=== PATIENT | female | born 1965 | race Caucasian/White ===

== ENCOUNTER 2023-12-07 21:51 | Inpatient (IN) | payer OTHER ==
[~2023-12-07 21:51] MED LIST: Iopamidol 370 76% 100 ML VIAL ONE
[2023-12-07] MEDS ORDERED: CEFAZOLIN 2 GM VIAL ONE (22:04)
[2023-12-07] MEDS ORDERED: Morphine 4 MG/ML VIAL ONE (22:04)
[2023-12-07] MEDS ORDERED: Ipratropium/Albuterol 3 ML NEB NEB PRN (22:22)
[2023-12-07] MEDS ORDERED: Morphine 2 MG/ML VIAL SLOW IVP PRN (22:22)
[2023-12-07] MEDS ORDERED: Ondansetron PF 4 MG/2 ML Vial IVP PRN (22:22)
[2023-12-07 22:31] LABS: #Basophils 0.05 10x3/uL (0.0-0.2); %Basophils 0.5 % (0.0-1.0); %Eosinophils 3.8 % (0.0-10.0); %Lymphocytes 32.2 % (21.0-51.0); %Monocytes 8.9 % (0.0-10.0); %Neutrophils 54.2 % (42.0-75.0); Hematocrit 41.7 % (36.0-47.0); Hemoglobin 13.7 g/dL (12.0-16.0); Mean Corpuscular HGB CONC 32.9 g/dL (32.0-36.0); Mean Corpuscular Hemoglobin 31.3 pg (27.0-31.0); Mean Corpuscular Volume 95.2 fL (78.0-98.0); Mean Platelet Volume 10.4 fL (7.4-10.4); Platelet Count 253 10x3/uL (130-400); RBC Distribution Width 14.4 % (11.5-14.5); Red Blood Cell (RBC) Count 4.38 mill/uL (4.20-5.40)
[2023-12-07 22:45] LABS: PTT 30.6 sec (22.9-36.1); Prothrombin Time 13.6 sec (12.0-14.7)
[2023-12-07 22:51] LABS: Alcohol 136.7 mg/dL (Less than 10)
[2023-12-07 22:53] LABS: ALT (SGPT) 54 U/L (8-55); AST (SGOT) 148 U/L (5-34); Albumin 3.4 g/dL (3.5-5.0); Alkaline Phosphatase 77 U/L (40-110); Anion Gap 19 mmol/L (10-20); BUN (Urea Nitrogen) 13 mg/dL (9.8-20.1); Bilirubin, Total 0.3 mg/dL (0.2-1.2); Calc. Creatinine Clearance 0 mL/min (70-130); Calcium 8.7 mg/dL (7.8-10.44); Carbon Dioxide 16 mmol/L (22-29); Chloride 102 mmol/L (98-107); Estimated GFR 81; Globulin 4.1 g/dL (2.4-3.5); Glucose 92 mg/dL (70-105); Potassium 3.3 mmol/L (3.5-5.1); Protein, Total 7.5 g/dL (6.0-8.3); Sodium 134 mmol/L (136-145)
[2023-12-07] MEDS ORDERED: fentaNYL 50 mcg/mL 1 mL Vial ONE (23:32)
[2023-12-08] MEDS: Albumin 5% 25 GM (500 mL) BOT IVPB SCH (01:00)
[2023-12-08 03:39] VITALS: BMI 20.4
[2023-12-08] MEDS: Oxazepam 10 MG CAP PO SCH (05:18)
[2023-12-08] MEDS: traMADol HCl 50 MG TAB PO SCH (05:18)
[2023-12-08] MEDS: Acetaminophen 325 MG TAB PO SCH (05:19)
[2023-12-08] MEDS: Sodium Chloride 0.9% 1,000 ML IV SCH ×3 (05:20→19:50)
[2023-12-08] MEDS: Cyclobenzaprine 10 MG TAB PO PRN (05:22)
[2023-12-08 06:05] LABS: INR-International Normal Ratio 1.1; PTT 28.3 sec (22.9-36.1); Prothrombin Time 14.3 sec (12.0-14.7)
[2023-12-08 06:06] LABS: Anion Gap 11 mmol/L (10-20); BUN (Urea Nitrogen) 13 mg/dL (9.8-20.1); Calc. Creatinine Clearance 66 mL/min (70-130); Calcium 7.8 mg/dL (7.8-10.44); Carbon Dioxide 18 mmol/L (22-29); Chloride 109 mmol/L (98-107); Estimated GFR 78; Glucose 124 mg/dL (70-105); Potassium 3.8 mmol/L (3.5-5.1); Sodium 134 mmol/L (136-145)
[2023-12-08 06:10] LABS: #Basophils Less than 0.03 10x3/uL (0.0-0.2); %Basophils 0.2 % (0.0-1.0); %Eosinophils 0.3 % (0.0-10.0); %Lymphocytes 8.7 % (21.0-51.0); %Monocytes 9.4 % (0.0-10.0); %Neutrophils 80.9 % (42.0-75.0); Hematocrit 31.9 % (36.0-47.0); Hemoglobin 10.2 g/dL (12.0-16.0); Mean Corpuscular Hemoglobin 30.8 pg (27.0-31.0); Mean Corpuscular Volume 96.4 fL (78.0-98.0); Mean Platelet Volume 10.9 fL (7.4-10.4); Platelet Count 206 10x3/uL (130-400); RBC Distribution Width 14.4 % (11.5-14.5); Red Blood Cell (RBC) Count 3.31 mill/uL (4.20-5.40)
[2023-12-08] MEDS: Pregabalin 75 MG CAP PO SCH (09:49)
[2023-12-08] MEDS: Methocarbamol 500 MG TAB PO SCH (09:49)
[2023-12-08] MEDS: Folic Acid 1 MG TAB PO SCH (09:49)
[2023-12-08] MEDS: Thiamine 100 MG TAB PO SCH (09:51)
[2023-12-08] MEDS: Famotidine/PF 20 mg/2ml Vial SLOW IVP SCH (09:51)
[2023-12-08] MEDS: Polyethylene Glycol 3350 17 GM Packet PO SCH (09:51)
[2023-12-08] MEDS: Senokot S 8.6-50 MG TAB PO SCH (09:53)
[2023-12-08 10:46] VITALS: BMI 20.4
[2023-12-08 13:09] LABS: #Basophils 0.04 10x3/uL (0.0-0.2); #Eosinphils Less than 0.03 10x3/uL (0.0-0.7); %Basophils 0.5 % (0.0-1.0); %Eosinophils 0.2 % (0.0-10.0); %Lymphocytes 22.5 % (21.0-51.0); %Monocytes 11.8 % (0.0-10.0); %Neutrophils 64.8 % (42.0-75.0); Hematocrit 29.3 % (36.0-47.0); Hemoglobin 9.4 g/dL (12.0-16.0); Mean Corpuscular HGB CONC 32.1 g/dL (32.0-36.0); Mean Corpuscular Hemoglobin 31.3 pg (27.0-31.0); Mean Corpuscular Volume 97.7 fL (78.0-98.0); Mean Platelet Volume 10.6 fL (7.4-10.4); Platelet Count 186 10x3/uL (130-400); RBC Distribution Width 14.6 % (11.5-14.5)
[2023-12-08 21:22] LABS: #Basophils 0.03 10x3/uL (0.0-0.2); %Basophils 0.4 % (0.0-1.0); %Eosinophils 2.5 % (0.0-10.0); %Lymphocytes 33.4 % (21.0-51.0); %Monocytes 13.4 % (0.0-10.0); Hemoglobin 8.8 g/dL (12.0-16.0); Mean Corpuscular HGB CONC 32.6 g/dL (32.0-36.0); Mean Corpuscular Volume 95.1 fL (78.0-98.0); Mean Platelet Volume 10.5 fL (7.4-10.4); Platelet Count 186 10x3/uL (130-400); RBC Distribution Width 14.5 % (11.5-14.5); Red Blood Cell (RBC) Count 2.84 mill/uL (4.20-5.40)
[2023-12-09] MEDS: traMADol HCl 50 MG TAB PO PRN (03:03)
[2023-12-09 05:27] LABS: #Basophils 0.03 10x3/uL (0.0-0.2); %Basophils 0.5 % (0.0-1.0); %Eosinophils 4.7 % (0.0-10.0); %Lymphocytes 28.9 % (21.0-51.0); %Monocytes 15.8 % (0.0-10.0); %Neutrophils 49.8 % (42.0-75.0); Hematocrit 22.4 % (36.0-47.0); Hemoglobin 7.4 g/dL (12.0-16.0); Mean Corpuscular Hemoglobin 31.4 pg (27.0-31.0); Mean Corpuscular Volume 94.9 fL (78.0-98.0); Mean Platelet Volume 10.5 fL (7.4-10.4); Platelet Count 156 10x3/uL (130-400); RBC Distribution Width 14.6 % (11.5-14.5); Red Blood Cell (RBC) Count 2.36 mill/uL (4.20-5.40)
[2023-12-09 12:42] LABS: #Basophils Less than 0.03 10x3/uL (0.0-0.2); %Basophils 0.4 % (0.0-1.0); %Eosinophils 6.1 % (0.0-10.0); %Monocytes 13.8 % (0.0-10.0); %Neutrophils 52.3 % (42.0-75.0); Hematocrit 22.2 % (36.0-47.0); Hemoglobin 7.3 g/dL (12.0-16.0); Mean Corpuscular HGB CONC 32.9 g/dL (32.0-36.0); Mean Corpuscular Hemoglobin 31.7 pg (27.0-31.0); Mean Corpuscular Volume 96.5 fL (78.0-98.0); Mean Platelet Volume 10.3 fL (7.4-10.4); Platelet Count 166 10x3/uL (130-400); RBC Distribution Width 14.6 % (11.5-14.5)
[2023-12-09] MEDS: Ascorbic Acid 500 mg Chewable Tablet PO SCH (20:17)
[2023-12-09 23:50] LABS: #Basophils 0.03 10x3/uL (0.0-0.2); %Basophils 0.5 % (0.0-1.0); %Eosinophils 6.7 % (0.0-10.0); %Lymphocytes 25.9 % (21.0-51.0); %Monocytes 12.7 % (0.0-10.0); %Neutrophils 53.9 % (42.0-75.0); Hematocrit 22.3 % (36.0-47.0); Hemoglobin 7.2 g/dL (12.0-16.0); Mean Corpuscular HGB CONC 32.3 g/dL (32.0-36.0); Mean Corpuscular Volume 96.1 fL (78.0-98.0); Mean Platelet Volume 10.5 fL (7.4-10.4); Platelet Count 149 10x3/uL (130-400); RBC Distribution Width 14.6 % (11.5-14.5); Red Blood Cell (RBC) Count 2.32 mill/uL (4.20-5.40)
[2023-12-10 09:07] LABS: #Basophils Less than 0.03 10x3/uL (0.0-0.2); %Basophils 0.2 % (0.0-1.0); %Eosinophils 6.6 % (0.0-10.0); %Lymphocytes 29.2 % (21.0-51.0); %Monocytes 13.6 % (0.0-10.0); %Neutrophils 49.9 % (42.0-75.0); Hematocrit 24.7 % (36.0-47.0); Hemoglobin 8.4 g/dL (12.0-16.0); Mean Corpuscular Hemoglobin 31.8 pg (27.0-31.0); Mean Corpuscular Volume 93.6 fL (78.0-98.0); Mean Platelet Volume 10.8 fL (7.4-10.4); Platelet Count 159 10x3/uL (130-400); RBC Distribution Width 14.8 % (11.5-14.5); Red Blood Cell (RBC) Count 2.64 mill/uL (4.20-5.40)
[2023-12-10] MEDS: Ferrous Sulfate 325 MG TAB PO SCH (09:37)
[2023-12-13 06:59] LABS: Hematocrit 27.8 % (36.0-47.0); Hemoglobin 9.4 g/dL (12.0-16.0); Mean Corpuscular HGB CONC 33.8 g/dL (32.0-36.0); Mean Corpuscular Hemoglobin 30.8 pg (27.0-31.0); Mean Corpuscular Volume 91.1 fL (78.0-98.0); Mean Platelet Volume 9.8 fL (7.4-10.4); Platelet Count 241 10x3/uL (130-400); RBC Distribution Width 14.5 % (11.5-14.5); Red Blood Cell (RBC) Count 3.05 mill/uL (4.20-5.40)
[2023-12-13 07:33] LABS: Anion Gap 12 mmol/L (10-20); BUN (Urea Nitrogen) 7 mg/dL (9.8-20.1); Calc. Creatinine Clearance 84 mL/min (70-130); Calcium 8.8 mg/dL (7.8-10.44); Carbon Dioxide 25 mmol/L (22-29); Chloride 100 mmol/L (98-107); Estimated GFR 101; Glucose 100 mg/dL (70-105); Potassium 3.8 mmol/L (3.5-5.1); Sodium 133 mmol/L (136-145)
[2023-12-13] MEDS: Lactulose 20 GM (30 mL) UDCUP PO SCH (09:30)
[2023-12-13] MEDS: Milk Of Magnesia 30 ML UDCUP PO SCH (09:32)
[2023-12-13] MEDS: Bisacodyl 10 MG SUPP PR SCH (09:33)
[2023-12-13 19:50] VITALS: BP 124/73; TEMP 98.2
== END 2023-12-13 20:30 | disposition home or self-care (01) | DRG 964 ==
LOC: ERS 21:51 → SURG A 23:33
PROVIDERS: ADMIT Surgery; ATTEND Surgery
PROC: 30233N1 Transfusion of Nonautologous Red Blood Cells into Peripheral Vein, Percutaneous Approach (ICD-10-PCS; principal; 2023-12-10)
DX: S36.031A Moderate laceration of spleen, initial encounter (principal); S22.42XA Multiple fractures of ribs, left side, initial encounter for closed fracture; S27.0XXA Traumatic pneumothorax, initial encounter; I10 Essential (primary) hypertension; G47.33 Obstructive sleep apnea (adult) (pediatric); G89.29 Other chronic pain; F10.129 Alcohol abuse with intoxication, unspecified; Y90.6 Blood alcohol level of 120-199 mg/100 ml; M06.9 Rheumatoid arthritis, unspecified; S00.03XA Contusion of scalp, initial encounter; V29.99XA Rider (driver) (passenger) of other motorcycle injured in unspecified traffic accident, initial encounter
CPT/HCPCS: 12002; 36415; 36416; 36430; 70450; 71045; 71260; 72125; 74177; 80048; 80053; 80307; 82533; 85025; 85027; 85610; 85730; 86850; 86900; 86901; 86905; 86921; 93005; 96365; 96375; G0390; J2270; J3010; J7050; P9016; Q9967; S0028